=== PATIENT | female | born 2000 | race Caucasian/White ===

== ENCOUNTER 2018-06-05 19:36 | Emergency (ER) | payer SELFPAY ==
[2018-06-05] MEDS ORDERED: Ketorolac 60 MG/2 ML SDV IM ONE (21:19)
[2018-06-05] MEDS ORDERED: Ondansetron 4 MG Tab.DIS PO ONE (21:19)
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
== END 2018-06-05 22:30 | disposition home or self-care (01) ==
LOC: JP.ED 19:36
DX: S46.911A Strain of unspecified muscle, fascia and tendon at shoulder and upper arm level, right arm, initial encounter (principal); V49.40XA Driver injured in collision with unspecified motor vehicles in traffic accident, initial encounter
CPT/HCPCS: 73030; 96372; 99284; A9270; J1885